=== PATIENT | female | born 1985 | race African-American/Black ===

== ENCOUNTER 2020-07-19 21:23 | Emergency (ER) | payer MEDICAID ==
[~2020-07-19] VITALS: Ht 162.6 cm; Wt 73.0 kg
[2020-07-19 21:24] VITALS: BP 138/88
== END 2020-07-19 22:15 | disposition left against medical advice (07) ==
LOC: ER 21:23
DX: F10.129 Alcohol abuse with intoxication, unspecified (principal); Z53.21 Procedure and treatment not carried out due to patient leaving prior to being seen by health care provider

== ENCOUNTER 2022-06-15 13:50 | Emergency (ER) | payer MEDICAID, OTHER ==
[~2022-06-15] VITALS: Ht 162.6 cm; Wt 79.0 kg
[2022-06-15 14:52] VITALS: BP 100/66
[2022-06-15 15:22] LABS: HEMATOCRIT. 41.3 % (36.0-48.0); HEMOGLOBIN. 14.2 g/dL (12.0-16.0); MEAN CORPUSCULAR VOLUME 92.8 fL (81.0-99.0); MEAN PLATELET VOLUME 9.4 fl (7.4-10.4); PLATELET 221 x1000/uL (130-400); RED BLOOD CELL COUNT 4.45 mill/uL (4.2-5.4); RED CELL DISTRIBUTION WIDTH 13.6 % (11.6-14.6)
[2022-06-15 15:31] LABS: CHLORIDE 105 mEq/L (98-107)
[2022-06-15 15:36] LABS: HCG SCREEN NEGATIVE
[2022-06-15 15:52] LABS: PLATELET ESTIMATE NORMAL
== END 2022-06-15 20:59 | disposition left against medical advice (07) ==
LOC: ER 14:07
DX: Z53.21 Procedure and treatment not carried out due to patient leaving prior to being seen by health care provider (principal)
CPT/HCPCS: 36415; 80053; 84703; 85025; 99281

== ENCOUNTER 2023-06-12 12:16 | Emergency (ER) | payer MEDICAID, OTHER ==
[~2023-06-12] VITALS: Ht 162.6 cm; Wt 82.0 kg
[2023-06-12 12:26] VITALS: O2SAT 100
[2023-06-12] MEDS ORDERED: CLAR10 MT (14:55)
[2023-06-12] MEDS ORDERED: IBUP-1523 MT (14:55)
[2023-06-12] MEDS ORDERED: AMOX-494 MT (14:55)
[2023-06-12] MEDS ORDERED: FLUT9.9S BOTHNSTRLS (14:55)
[2023-06-12] MEDS ORDERED: TOPUD MT (14:55)
[2023-06-12 15:34] VITALS: BP 124/86; PULSE 98; RESP 18; TEMP 97.3
== END 2023-06-12 15:36 | disposition home or self-care (01) ==
LOC: ER 12:40
DX: J02.9 Acute pharyngitis, unspecified (principal); J30.9 Allergic rhinitis, unspecified; Z98.890 Other specified postprocedural states; Z90.49 Acquired absence of other specified parts of digestive tract; Z79.899 Other long term (current) drug therapy
CPT/HCPCS: 99281; 99283